=== PATIENT | male | born 2005 | race Caucasian/White ===

== ENCOUNTER 2023-11-11 16:36 | Outpatient (OUT) | payer SELFPAY ==
--- NOTE | 2023-11-11 16:49 | XR_ITS ---
[address] [address] Patient Name: LESLIE BENTLEY MRN: [id number] date: 2005 Sex: M Assigned Patient Location: [facility] Current Patient Location: Accession/Order Number: [id number] Exam Date: 11/11/2023 16:50 Report Date: 11/12/2023 07:34 At the request of: MICKEY TY Procedure: XR chest 2V EXAMINATION: XR chest 2V HISTORY: chronic cough R05.3 COMPARISON: No relevant comparison available. TECHNIQUE: PA and lateral FINDINGS: LUNGS: No significant pulmonary parenchymal abnormalities. VASCULATURE: No increased pulmonary vasculature. PLEURA: No pneumothorax, effusion, or pleural thickening. CARDIAC: No cardiomegaly or cardiac silhouette abnormality. MEDIASTINUM: No visible mass or adenopathy. BONES: No fracture or visible bone lesion. OTHER: Negative. XR/XR chest 2V IMPRESSION: No acute cardiopulmonary process Electronically authenticated by: MARCELO RODRIGUES Date: 11/12/2023 07:34
== END 2023-11-11 16:37 | disposition home or self-care (01) ==
PROVIDERS: PCP Family Medicine; Visit Provider Family Medicine
DX: R05.3 Chronic cough (principal)
CPT/HCPCS: 71046